=== PATIENT | female | born 1940 | race Caucasian/White ===

== ENCOUNTER 2017-08-23 10:02 | Inpatient (IN) | payer MEDICARE, MEDICAID ==
[~2017-08-23] VITALS: Ht 165.1 cm; Wt 51.2 kg
[~2017-08-23 10:02] MED LIST: ASPIRIN 32325 MG/TAB PO; CALTRATE 600+D1 TAB PO; CLOPIDOGREL; FOSAMAX40 MG PO; LIPITOR 40MG TA40 MG PO; LIPITOR20 MG PO; NORVASC 10MG10 MG PO; NORVASC5 MG PO; PLAVIX 75MG TAB75 MG PO; [UNRECOGNIZED DRUG - REMARK]; [UNRECOGNIZED DRUG - REMARK]
[2017-08-23 10:48] LABS: BASO # 0.1 (0.0-0.2); BASO % 0.5 % (0.0-2.0); EOS # 0.1 (0.0-0.7); EOS % 0.5 % (0-4.0); GRAN # 9.2 (1.4-6.5); GRAN % 81.1 % (42.2-75.2); HEMATOCRIT 42.9 % (37.0-47.0); HEMOGLOBIN 14.6 g/dl (12.5-16.0); LYMPH # 1.5 (1.2-3.4); LYMPH % 12.9 % (20.0-51.0); MEAN CELL VOLUME 94 fl (80.0-100.0); MEAN CORPUSCULAR HEMOGLOBIN 32 pg (27.0-31.0); MEAN CORPUSCULAR HGB CONC 34 g/dl (33.0-37.0); MONO # 0.5 (0.1-0.6); MONO % 4.6 % (1.7-9.3); PLATELET COUNT 264 K/mm3 (130-400); RED BLOOD COUNT 4.59 M/mm3 (4.10-5.30); REDCELL DISTRIBUTION WIDTH-CV 13.4 % (11.5-14.5); WHITE BLOOD COUNT 11.3 K/mm3 (4.8-10.8)
[2017-08-23 10:59] LABS: ALANINE AMINOTRANSFERASE 31 U/L (9-52); ALBUMIN 4.2 gm/dL (3.5-5.0); ALKALINE PHOSPHATASE 79 U/L (50-136); ANION GAP 8 mmol/L (7-16); BILIRUBIN,TOTAL 0.7 mg/dL (0.0-1.0); BLOOD UREA NITROGEN 8 mg/dL (7-17); CALCIUM 9.2 mg/dL (8.4-10.2); CARBON DIOXIDE 26 mmol/L (22-30); CHLORIDE 101 mmol/L (98-107); CREATININE, serum 0.69 mg/dL (0.52-1.25); GLUCOSE 98 mg/dL (74-106); POTASSIUM 4.6 mmol/L (3.4-5.0); SODIUM 135 mmol/L (137-145); TOTAL PROTEIN 7.5 gm/dL (6.4-8.2)
[2017-08-23 11:08] LABS: PROTHROMBIN TIME 11.3 SECONDS (9.7-12.8)
[2017-08-23 11:10] LABS: PARTIAL THROMBOPLASTIN TIME 56.3 SECONDS (26.0-37.0); TROPONIN-I < 0.012 ng/mL (0.000-0.034)
[2017-08-23 13:16] VITALS: BP 146/52; PULSE 98; TEMP 97.8
[2017-08-23 16:54] VITALS: BP 154/83; PULSE 91; TEMP 98
[2017-08-23] MEDS ORDERED: BYSTOLIC5 MG PO (17:35)
[2017-08-23] MEDS ORDERED: FOSAMAX 70MG TA70 MG PO (17:36)
[2017-08-23] MEDS ORDERED: NORVASC 10MG10 MG PO (17:37)
[2017-08-23] MEDS ORDERED: LOMOTIL 0.025 M1 TAB PO (17:37)
[2017-08-23] MEDS ORDERED: COZAAR 50MG50 MG/TAB PO (17:38)
[2017-08-23 21:24] VITALS: BP 109/73; PULSE 92; TEMP 97.7
[2017-08-24 00:37] VITALS: BP 132/67; PULSE 92; TEMP 98.1
[2017-08-24 05:20] VITALS: BP 113/67; PULSE 106; TEMP 98.1
[2017-08-24 08:35] VITALS: BP 106/51; PULSE 92; TEMP 99.2
[2017-08-24 08:59] LABS: BASO # 0.1 (0.0-0.2); BASO % 0.9 % (0.0-2.0); EOS # 0.1 (0.0-0.7); EOS % 0.8 % (0-4.0); GRAN # 7.6 (1.4-6.5); GRAN % 77.1 % (42.2-75.2); HEMATOCRIT 43.9 % (37.0-47.0); HEMOGLOBIN 14.9 g/dl (12.5-16.0); LYMPH # 1.5 (1.2-3.4); LYMPH % 15.7 % (20.0-51.0); MEAN CELL VOLUME 93 fl (80.0-100.0); MEAN CORPUSCULAR HEMOGLOBIN 32 pg (27.0-31.0); MEAN CORPUSCULAR HGB CONC 34 g/dl (33.0-37.0); MEAN PLATELET VOLUME 10.2 fl (7.4-10.4); MONO # 0.5 (0.1-0.6); MONO % 5.2 % (1.7-9.3); PLATELET COUNT 269 K/mm3 (130-400); REDCELL DISTRIBUTION WIDTH-CV 13.3 % (11.5-14.5); WHITE BLOOD COUNT 9.8 K/mm3 (4.8-10.8)
[2017-08-24 09:13] LABS: CALCIUM 8.9 mg/dL (8.4-10.2); CREATININE, serum 0.67 mg/dL (0.52-1.25); POTASSIUM 3.8 mmol/L (3.4-5.0)
[2017-08-24 11:21] VITALS: BP 116/45; PULSE 87; TEMP 98.6
[2017-08-24 16:07] VITALS: BP 100/56; PULSE 96; TEMP 98.3
[2017-08-24 19:43] VITALS: BP 131/64; PULSE 61; TEMP 98.1
[2017-08-25 00:13] VITALS: BP 167/64; PULSE 92; TEMP 99.5
[2017-08-25 03:56] VITALS: BP 148/62; PULSE 91; TEMP 98.7
[2017-08-25 07:48] VITALS: BP 151/60; PULSE 90; TEMP 98.5
[2017-08-25] MEDS ORDERED: ELIQUIS 5MG PO (10:25)
[2017-08-25] MEDS ORDERED: NICODERM C21 MG/PATC TD (10:25)
[2017-08-25] MEDS ORDERED: PLAVIX 75MG TAB75 MG PO (10:25)
[2017-08-25 12:06] VITALS: BP 151/60; PULSE 90; TEMP 98.5
== END 2017-08-25 13:19 | DRG 65 ==
LOC: COL.ER 10:02 → MEDICAL 11:18
PROVIDERS: Emergency Medicine; Physician Assistant
DX: I63.9 Cerebral infarction, unspecified (principal); E44.0 Moderate protein-calorie malnutrition; Z68.1 Body mass index [BMI] 19.9 or less, adult; I65.23 Occlusion and stenosis of bilateral carotid arteries; R47.01 Aphasia; I10 Essential (primary) hypertension; E78.5 Hyperlipidemia, unspecified; J44.9 Chronic obstructive pulmonary disease, unspecified; M81.0 Age-related osteoporosis without current pathological fracture; F17.210 Nicotine dependence, cigarettes, uncomplicated
CPT/HCPCS: 99223-AI; 99232-AI; 99239; A9585; J7030; Q9967

== ENCOUNTER 2017-08-25 12:20 | Inpatient (IN) | payer MEDICARE, MEDICAID ==
[~2017-08-25] VITALS: Ht 160 cm; Wt 49.4 kg
[~2017-08-25 12:20] MED LIST changes: +BYSTOLIC5 MG PO; +COZAAR 50MG50 MG/TAB PO; +ELIQUIS 5MG PO; +FOSAMAX 70MG TA70 MG PO; +LOMOTIL 0.025 M1 TAB PO; +NICODERM C21 MG/PATC TD
[2017-08-25 15:24] VITALS: BP 116/42; PULSE 104; TEMP 99
[2017-08-25 16:00] VITALS: BP 116/42; PULSE 104; TEMP 99
[2017-08-26 04:55] VITALS: BP 124/54; PULSE 81; TEMP 99.5
[2017-08-26 17:18] VITALS: BP 128/52; PULSE 80; TEMP 98.6
[2017-08-27 05:51] VITALS: BP 96/60; PULSE 96; TEMP 99.9
[2017-08-27 16:17] VITALS: BP 121/62; PULSE 85; TEMP 98.3
[2017-08-28 03:57] VITALS: BP 110/71; PULSE 77; TEMP 98.4
[2017-08-28 17:45] VITALS: BP 128/52; PULSE 80; TEMP 99.5
[2017-08-29 05:15] VITALS: BP 116/45; PULSE 77; TEMP 98.5
[2017-08-29 19:15] VITALS: BP 104/48; PULSE 85; TEMP 98.2
[2017-08-30 06:28] VITALS: BP 105/46; PULSE 79; TEMP 98.5
[2017-08-30 15:59] VITALS: BP 94/58
[2017-08-30 16:50] VITALS: BP 93/43; PULSE 80; TEMP 99.2
[2017-08-31 05:53] VITALS: BP 115/41; PULSE 89; TEMP 99.4
[2017-08-31 17:30] VITALS: BP 146/59; PULSE 80; TEMP 99.5
[2017-09-01 06:52] VITALS: BP 113/47; PULSE 87; TEMP 99.4
[2017-09-01 19:00] VITALS: BP 95/77; PULSE 80; TEMP 98.3
[2017-09-02 05:17] VITALS: BP 126/53; PULSE 72; TEMP 97.5
[2017-09-02 17:00] VITALS: BP 141/51; PULSE 80; TEMP 99.2
[2017-09-02 22:23] VITALS: TEMP 98
[2017-09-03 06:02] VITALS: BP 141/58; PULSE 79; TEMP 98.2
[2017-09-03 16:33] VITALS: BP 143/65; PULSE 74; TEMP 98.7
[2017-09-04 05:29] VITALS: BP 125/56; PULSE 78; TEMP 97.6
[2017-09-04 16:00] VITALS: BP 145/66; PULSE 88; TEMP 98.2
[2017-09-05 05:20] VITALS: BP 128/60; PULSE 74; TEMP 98
[2017-09-05] MEDS ORDERED: PLAVIX 75MG TAB75 MG PO (13:22)
[2017-09-05] MEDS ORDERED: NICODERM C21 MG/PATC TD (13:22)
[2017-09-05] MEDS ORDERED: LOMOTIL 0.025 M1 TAB PO (13:23)
[2017-09-05] MEDS ORDERED: ELIQUIS 5MG PO (13:29)
[2017-09-05] MEDS ORDERED: COZAAR 50MG50 MG/TAB PO ×2 (14:03→14:05)
[2017-09-05] MEDS ORDERED: NORVASC 10MG10 MG PO (14:04)
== END 2017-09-05 15:20 | disposition home or self-care (01) | DRG 57 ==
DX: I69.320 Aphasia following cerebral infarction (principal); Z68.1 Body mass index [BMI] 19.9 or less, adult; E44.0 Moderate protein-calorie malnutrition; I69.393 Ataxia following cerebral infarction; I69.398 Other sequelae of cerebral infarction; R20.8 Other disturbances of skin sensation; I10 Essential (primary) hypertension; J44.9 Chronic obstructive pulmonary disease, unspecified; F17.210 Nicotine dependence, cigarettes, uncomplicated
CPT/HCPCS: 99222-AI; 99232-AI; 99239; A9284